=== PATIENT | female | born 1965 | race Caucasian/White ===

== ENCOUNTER 2021-09-14 17:40 | Emergency (ER) | payer MEDICAID, OTHER ==
[~2021-09-14] VITALS: Ht 160 cm; Wt 80.0 kg
[2021-09-14] MEDS ORDERED: KETOROLAC 60MG/2ML VIAL IM STA (18:18)
[2021-09-14] MEDS ORDERED: CYCLOBENZAPRINE 10MG TABLET PO ONE (18:30)
[2021-09-14] MEDS ORDERED: LIDOCAINE 5% PATCH TOP NR (22:41)
[2021-09-14] MEDS ORDERED: CYCL5TAB MT (22:42)
[2021-09-14 23:06] VITALS: BP 122/68
== END 2021-09-14 23:10 | disposition home or self-care (01) ==
LOC: ER 17:40
DX: R07.89 Other chest pain (principal); E11.9 Type 2 diabetes mellitus without complications; I10 Essential (primary) hypertension; V43.62XA Car passenger injured in collision with other type car in traffic accident, initial encounter; Y93.89 Activity, other specified; Y92.410 Unspecified street and highway as the place of occurrence of the external cause; Z88.0 Allergy status to penicillin
CPT/HCPCS: 71045; 73030; 93005; 99284; J1885